=== PATIENT | female | born 1980 | race Two or more races ===

== ENCOUNTER 2018-06-28 23:23 | Emergency (ER) | payer OTHER ==
[~2018-06-28] VITALS: Ht 152.4 cm; Wt 95.3 kg
[~2018-06-28 23:23] MED LIST: IBUP800T24 PO
[2018-06-28 23:34] VITALS: BP 134/73
[2018-06-29] MEDS ORDERED: IBUPROFEN 800 MG TAB PO ONE (03:30)
== END 2018-06-29 03:26 | disposition home or self-care (01) ==
LOC: ER 23:33
DX: J06.9 Acute upper respiratory infection, unspecified (principal); Z91.040 Latex allergy status

== ENCOUNTER 2019-07-23 17:38 | Emergency (ER) | payer OTHER ==
[~2019-07-23] VITALS: Ht 165.1 cm; Wt 82.1 kg
[2019-07-23 18:57] VITALS: BP 119/65
== END 2019-07-23 20:49 | disposition home or self-care (01) ==
LOC: ER 17:38
DX: S83.92XA Sprain of unspecified site of left knee, initial encounter (principal); S93.402A Sprain of unspecified ligament of left ankle, initial encounter; W20.8XXA Other cause of strike by thrown, projected or falling object, initial encounter; Y93.89 Activity, other specified; Y92.89 Other specified places as the place of occurrence of the external cause; Y99.8 Other external cause status
CPT/HCPCS: 29505; 73560; 73620

== ENCOUNTER 2020-10-16 14:38 | Emergency (ER) | payer OTHER ==
[~2020-10-16] VITALS: Ht 157.5 cm; Wt 81.2 kg
[~2020-10-16 14:38] MED LIST changes: -IBUP800T24 PO; +IBUP800T27 PO
[2020-10-16] MEDS ORDERED: LORazepam 0.5 MG TAB PO ONE (14:45)
[2020-10-16] MEDS ORDERED: ASPirin 81 mg TAB PO ONE (15:00)
[2020-10-16 15:09] LABS: Basophils # (auto) 0 10 ^3/uL (0-0.2); Basophils % (auto) 0.6 % (0.0-2.0); Eosinophils # (auto) 0.1 10 ^3/uL (0-0.8); Lymphocytes # (auto) 2.4 10 ^3/uL (0.4-5.4); Mean Corpuscular Hgb Conc. 33.5 g/dL (32.0-36.0); Monocytes # (auto) 0.4 10 ^3/uL (0-1.3); Nucleated Red Blood Cells % 0.1 %
[2020-10-16 15:13] LABS: Eosinophils % (auto) 0.9 % (0.0-7.0); Hematocrit 38.6 % (36.0-46.0); Hemoglobin 12.9 g/dL (12.2-16.2); Lymphocytes % (auto) 31.7 % (10.0-50.0); Mean Corpuscular Hemoglobin 25.7 pg (28.0-32.0); Mean Corpuscular Volume 76.6 fL (80.0-100.0); Monocytes % (auto) 5.4 % (0.0-12.0); Neutrophils # (auto) 4.7 10 ^3/uL (1.6-8.6); Neutrophils % (auto) 61.4 % (37.0-80.0); Red Blood Cells 5.03 10^6/uL (4.0-5.20); Red Cell Distribution Width 14.4 % (11.8-14.3); White Blood Cell 7.7 10^3/uL (4.4-10.8)
[2020-10-16 15:29] LABS: Albumin 3.4 g/dL (3.4-5.0); Anion Gap 6 (5-15); Blood Urea Nitrogen 12 mg/dL (7-18); Calcium 8.7 mg/dL (8.5-10.1); Carbon Dioxide 23 mmol/L (21-32); Chloride 108 mmol/L (98-107); Glucose 104 mg/dL (74-106); Magnesium 2.1 mg/dL (1.6-2.6); Potassium 3.5 mmol/L (3.5-5.1); Sodium 137 mmol/L (136-145)
[2020-10-16 15:34] LABS: Alanine Aminotransferase 25 U/L (13-56); Alkaline Phosphatase 73 U/L (45-117); Aspartate Aminotransferase 17 U/L (15-37); Bilirubin, Total 0.3 mg/dL (0.2-1.0); GFR African American 143 mL/min; GFR Non-African American 118 mL/min
[2020-10-16 16:39] LABS: Urine WBC None Seen /hpf (0 - 5)
[2020-10-16 16:59] LABS: Urine Bacteria NONE SEEN /hpf (None Seen); Urine Blood Negative /uL (Negative); Urine Specific Gravity 1.021 (1.001-1.035)
[2020-10-16 17:30] VITALS: BP 113/72
== END 2020-10-16 17:47 | disposition home or self-care (01) ==
LOC: ER 14:38
DX: R07.89 Other chest pain (principal); F41.9 Anxiety disorder, unspecified; Z98.51 Tubal ligation status; Z91.040 Latex allergy status; Z98.890 Other specified postprocedural states
CPT/HCPCS: 36415; 80053; 81001; 83735; 84484; 85025; 93005

== ENCOUNTER 2023-06-10 11:50 | Emergency (ER) | payer SELFPAY ==
[~2023-06-10] VITALS: Ht 152.4 cm; Wt 85.0 kg
[~2023-06-10 11:50] MED LIST changes: +IBUP-1456 PO; -IBUP800T27 PO
[2023-06-10 12:55] LABS: Eosinophils # (auto) 0.1 10 ^3/uL (0-0.8); Hemoglobin 13.9 g/dL (12.2-16.2); Lymphocytes # (auto) 2.4 10 ^3/uL (0.4-5.4); Lymphocytes % (auto) 27.3 % (10.0-50.0)
[2023-06-10 12:56] LABS: Basophils # (auto) 0 10 ^3/uL (0-0.2); Basophils % (auto) 0.5 % (0.0-2.0); Eosinophils % (auto) 1.1 % (0.0-7.0); Mean Corpuscular Hemoglobin 24.5 pg (28.0-32.0); Mean Corpuscular Hgb Conc. 32.4 g/dL (32.0-36.0); Mean Corpuscular Volume 75.6 fL (80.0-100.0); Monocytes # (auto) 0.5 10 ^3/uL (0-1.3); Monocytes % (auto) 5.1 % (0.0-12.0); Neutrophils # (auto) 5.9 10 ^3/uL (1.6-8.6); Nucleated Red Blood Cells % 0.1 %; Red Blood Cells 5.68 10^6/uL (4.0-5.20); Red Cell Distribution Width 16.2 % (11.8-14.3); White Blood Cell 8.9 10^3/uL (4.4-10.8)
[2023-06-10 12:59] LABS: Urine Bacteria NONE SEEN /hpf (None Seen); Urine Blood 1+ /uL (Negative); Urine Clarity Clear (Clear); Urine Color Yellow (Yellow); Urine Mucus FEW (None Seen); Urine Protein, UAD Negative (Negative); Urine Specific Gravity 1.017 (1.001-1.035); Urine Urobilinogen Normal (Negative); Urine WBC <1 /hpf (0 - 5)
[2023-06-10 13:16] VITALS: PULSE 98; RESP 12; O2SAT 96
[2023-06-10 13:17] LABS: Amphetamine Screen, Urine Neg (NEGATIVE)
[2023-06-10 13:18] LABS: Benzodiazephine Screen, Urine Pos (NEGATIVE)
[2023-06-10 13:20] LABS: Barbiturate Scree,Urine Neg (NEGATIVE); Cannabinoid Screen, Urine Neg (NEGATIVE); Cocaine Screen, Urine Neg (NEGATIVE); Opiate Scree,Urine Neg (NEGATIVE); Phencyclidine Screen, Urine Neg (NEGATIVE)
[2023-06-10 13:20] LABS: Acetaminophen < 2.0 UG/ML (10.0-20.0); Alanine Aminotransferase 45 U/L (7-40); Albumin 4.7 g/dL (3.2-4.8); Alkaline Phosphatase 83 U/L (46-116); Anion Gap 7 (5-15); Aspartate Aminotransferase 44 U/L (13-40); BUN/Creatinine Ratio 7.6 (10.0-20.0); Bilirubin, Total 0.5 mg/dL (0.2-1.0); Blood Urea Nitrogen 6 mg/dL (9-23); Calcium 9.4 mg/dL (8.5-10.1); Carbon Dioxide 24 mmol/L (20-30); Chloride 104 mmol/L (98-107); Glucose 88 mg/dL (74-106); Potassium 3.8 mmol/L (3.5-5.1); Sodium 135 mmol/L (136-145); Total Protein 7.9 g/dL (5.7-8.2)
[2023-06-10 13:30] LABS: Salicylate < 3.0 mg/dL (2.8-20.0)
[2023-06-10 19:30] VITALS: PULSE 74; RESP 16; O2SAT 94
[2023-06-10] MEDS: MIRTAZAPINE 30 MG TAB PO SCH (22:39)
[2023-06-11 07:30] VITALS: PULSE 72; RESP 18; O2SAT 95
[2023-06-11 19:48] VITALS: PULSE 62; RESP 16; O2SAT 99
[2023-06-12 07:39] VITALS: PULSE 66; RESP 15; O2SAT 97
[2023-06-12] MEDS: LORazepam 0.5 MG TAB PO ONE (09:51)
[2023-06-12 19:30] VITALS: PULSE 64; RESP 16; O2SAT 95
[2023-06-13 08:27] VITALS: BP 118/68; PULSE 67; RESP 18; TEMP 97.5; O2SAT 96
== END 2023-06-13 08:35 | disposition short-term general hospital (02) ==
LOC: ER 11:50
DX: R45.851 Suicidal ideations (principal); F32.9 Major depressive disorder, single episode, unspecified; Z98.890 Other specified postprocedural states; Z79.899 Other long term (current) drug therapy
CPT/HCPCS: 36415; 80053; 80307; 80329; 81001; 81025; 85025

== ENCOUNTER 2024-11-30 07:15 | Emergency (ER) | payer BC ==
[~2024-11-30] VITALS: Ht 152.4 cm; Wt 81.1 kg
--- NOTE | 2024-11-30 07:32 | ED.PDOC ---
LIST OF FIRST JOB IDEAS HPI Comments 44 y.o female presents to the ED for a chief complaint of vaginal bleeding x 17 days. Patient reports her [facility] was 3 months prior to bleeding episode, states she assumed this was her menstrual cycle but for the past 7 days, bleeding got heavier and noticed passing multiple blood clots. Patient today was showering, passed a large blood clot followed by an episode of lightheadedness and pelvic pain. She denies history of anemia, irregular MC, (per pt has a tubal ligation), nausea, vomiting, back pain, fever, or chills. Chief Complaint: Vaginal Bleed Time Seen by MD: 07:24 Reviewed Notes: Nurses Notes, Medications, Allergies Allergies: Coded Allergies: Latex (Verified Allergy, Severe, ANAPHYLAXIS, 06/10/23) Morphine (Verified Allergy, Mild, ITCHY, 06/10/23) Uncoded Allergies: WALNUTS (Allergy, Mild, 06/17/13) TREENUTS (Allergy, Unknown, 11/30/24) Home Meds Active Scripts Ibuprofen (Ibuprofen) 800 Mg Tab, 800 MG PO Q6HP PRN, #30 TAB 0 Refills Prov:JASMIN GARCIA PAC 06/17/13 Information Source: Patient Mode of Arrival: Ambulatory Timing: Days (17) Severity: Moderate Vaginal Discharge: None Vaginal Lesions: None Bleeding Quality: Dark, Clotted Vaginal Mass: None Onset Of Mass/Bleeding: Spontaneous Sexual Activity: Neither Last Consensual [place]: Unknown Control: None Symptoms of Possible : Missed Period Associated Signs and Symptoms: Vaginal Bleeding, Cramping Past Medical History PAST MEDICAL HISTORY: Denies Surgical History: , 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 History Family History Family History: No family hx of DM Social History Smoker: Non-Smoker Alcohol: Occasionally Drugs: Denies Drug Use Lives In: Home Constitutional: denies: chills, diaphoresis, fatigue, fever, malaise, sweats, weakness, others EENTM: denies: blurred vision, double vision, ear bleeding, ear discharge, ear drainage, ear pain, ear ringing, eye pain, eye redness, hearing loss, mouth pain, mouth swelling, nasal discharge, nose bleeding, nose congestion, nose pain, photophobia, tearing, throat pain, throat swelling, voice changes, others Respiratory: denies: cough, hemoptysis, orthopnea, SOB at rest, shortness of breath, SOB with excertion, stridor, wheezing, others Cardiovascular: reports: lightheadedness; denies: chest pain, dizzy spells, diaphoresis, Dyspnea on exertion, edema, irregular heart beat, left arm pain, palpitations, PND, syncope, others Gastrointestinal: denies: abdomen distended, abdominal pain, blood streaked bowels, constipated, diarrhea, dysphagia, difficulty swallowing, hematemesis, melena, nausea, poor appetite, poor fluid intake, rectal bleeding, rectal pain, vomiting, others Genitourinary: reports: abnormal vagina bleeding, pain; denies: burning, dyspareunia, dysuria, flank pain, frequency, hematuria, incontinence, , vagina discharge, urgency, others Neurological: denies: dizziness, fainting, headache, left sided numbness, left sided weakness, numbness, paresthesia, pre-existing deficit, right sided numbness, right sided weakness, seizure, speech problems, tingling, tremors, weakness, others Musculoskeletal: denies: back pain, gout, joint pain, joint swelling, muscle pain, muscle stiffness, neck pain, others Integumetry: denies: bruises, change in color, change in hair/nails, dryness, laceration, lesions, lumps, rash, wounds, others Allergic/Immunocompromised: denies: Difficulty Healing, Frequent Infections, Hives, Itching, others Hematologic/Lymphatic: reports: blood clots; denies: anemia, easy bleeding, easy bruising, swollen glands, others Endocrine: denies: excessive hunger, excessive sweating, excessive thirst, excessive urination, flushing, intolerance to cold, intolerance to heat, unexplained weight gain, unexplained weight loss, others Psychiatric: denies: anxiety, bipolar disorder, depression, hopeless, panic disorder, schizophrenia, sleepless, suicidal, others All Other Systems: Reviewed and Negative Physical Exam General Appearance: Moderate Distress HEENT: Normal ENT Inspection, Pharynx Normal, TMs Normal Neck: Full Range of Motion, Non-Tender, Normal, Normal Inspection Respiratory: Chest Non-Tender, Lungs Clear, No Accessory Muscle Use, No Respiratory Distress, Normal Breath Sounds Cardiovascular: No Edema, No JVD, No Murmur, No Gallop, Normal Peripheral Pulses, Regular Rate/Rhythm Breast Exam: Deferred Gastrointestinal: No Organomegaly, Non Tender, No Pulsatile Mass, Normal Bowel Sounds, Soft Genitalia: Deferred Pelvic: Deferred Rectal: Deferred Extremities: No calf tenderness, Normal capillary refill, Normal inspection, Normal range of motion, Non-tender, No pedal edema Musculoskeletal : Apperance: Normal Neurologic: Alert, electroencephalograph technician II-XII nml as Tested, No Motor Deficits, Normal Affect, Normal Mood, No Sensory Deficits Cerebellar Function: Normal Reflexes: Normal Skin: Dry, Normal Color, Warm Peripheral Pulses: 3+ Radial (R), 3+ Radial (L) Lymphatic: No Adenopathy Was a procedure done? Was a procedure done?: No Differential Diagnosis (SAGGER MAKER) Vaginal Bleeding: - Incomplete, - Missed, - Threatened, Blood Loss Anemia, Cervicitis, Ectopic , Hormonal, Menorrhagia, Menometrorrhagia, Menstrual Bleeding, PID, UTI X-Ray, Labs, Meds, VS Vital Signs Date Time Temp Pulse Resp B/P (MAP) Pulse Ox O2 Delivery O2 Flow Rate FiO2 11/30/24 07:17 98.7 96 18 161/93 82 98.7 Patient alert. Came in for vaginal bleeding. Vitals stable. Answering questions. Blood pressure slightly elevated. Was given clonidine. Possible fibroid. Explained to the patient. Was told to follow up with her primary care physician. Was told to come back if there is any problem. Time of 1ST Reevaluation: 07:28 Reevaluation 1ST: Unchanged Patient Education/Counseling: Diagnosis, Treatment, Prognosis Family Education/Counseling: No Family Present Departure 1 Departure Time of Disposition: 07:40 Impression: Primary Impression: Vaginal bleeding Disposition: 01 HOME / SELF CARE / HOMELESS Condition: Good Discharged With: Self Critical Care Note Critical Care Time?: No Stability Stability form required: No I personally scribed for HUMBERTO MICHAEL MD ([email or web address]) on 11/30/24 at 07:32. Electronically submitted by Gretel Gonsales ([facility]). HUMBERTO MICHAEL MD Nov 30, 2024 07:32
[2024-11-30 08:05] LABS: Hematocrit 39.2 % (36.0-46.0); Hemoglobin 12.9 g/dL (12.2-16.2); Mean Corpuscular Hemoglobin 24.4 pg (28.0-32.0); Mean Corpuscular Volume 74.1 fL (80.0-100.0); Nucleated Red Blood Cells % 0.0 %
[2024-11-30 12:24] LABS: Urine Protein, UAD 1+ (Negative)
[2024-11-30 12:30] VITALS: TEMP 98.1
--- NOTE | 2024-11-30 14:23 | DVH ---
INDICATION: fibroid TECHNIQUE: Multiple real-time grayscale transabdominal sonographic images along with color and duplex Doppler of the uterus and ovaries were obtained. COMPARISON: None FINDINGS: The uterus measures 12 X 5 X 4 cm. The endometrial stripe measures 0.8cm. The right ovary measures 3 X 2 X 3 cm. The left ovary measures 4 X 3 X 3 cm. 1 CM RIGHT OVARIAN CYST. 4 CM LEFT OVARIAN CYST. Subsequent color and duplex Doppler interrogation of the ovaries demonstrated symmetric vascular flow to both ovaries, though this does not exclude the possibility of torsion due to the dual blood suppl y. IMPRESSION: 1. Grossly unremarkable pelvic ultrasound. Patient refused transvaginal exam.
[2024-11-30 17:05] VITALS: BP 132/84; PULSE 77; RESP 18; O2SAT 96
== END 2024-11-30 18:00 | disposition home or self-care (01) ==
LOC: ER 07:15
DX: R42 Dizziness and giddiness (principal); N93.9 Abnormal uterine and vaginal bleeding, unspecified; F10.90 Alcohol use, unspecified, uncomplicated; Z98.51 Tubal ligation status; Z88.5 Allergy status to narcotic agent; Z91.040 Latex allergy status; Z79.899 Other long term (current) drug therapy; Y90.9 Presence of alcohol in blood, level not specified
CPT/HCPCS: 36415; 76856; 81001; 81025; 85025